=== PATIENT | male | born 1990 | race Caucasian/White ===

== ENCOUNTER 2017-10-18 15:58 | Emergency (ER) | payer MEDICAID ==
[~2017-10-18] VITALS: Ht 182.8 cm; Wt 117.9 kg
[2017-10-18] MEDS ORDERED: LIDEX 0.05% CRE15 GM T (16:23)
== END 2017-10-18 16:34 | disposition home or self-care (01) ==
LOC: ED 15:58
DX: R21 Rash and other nonspecific skin eruption (principal); Z88.6 Allergy status to analgesic agent